=== PATIENT | female | born 1960 | race Caucasian/White ===

== ENCOUNTER 2018-01-15 14:44 | Inpatient (IN) | payer OTHER ==
[2018-01-15 15:09] VITALS: BMI 28.3
--- NOTE | 2018-01-15 17:34 | HP ---
COWS - Scale Resting Pulse: 0= [place] 80 or Below Sweatin= Chills/Flushing Restless Observation: 3= Extraneous Movement Pupil Size: 2= Moderately Dilated Bone or Joint Aches: 2= Severe Diffuse Aches Runny Nose/ Eye Tearin= Runny Nose/Eyes GI Upset > 30mins: 3= Vomiting/Diarrhea Tremor Observation: 2= Slight Tremor Visible Yawning Observation: 2= >3x During Session Anxiety or Irritability: 2=Irritable/Anxious Goose Flesh Skin: 0=Smooth Skin COWS Score: 19 CIWA Score - CIWA Score Nausea/Vomitin Muscle Tremors: 3 Anxiety: 3 Agitation: 3 Paroxysmal Sweats: 2 Orientation: 0-Oriented Tacttile Disturbances: 1-Very Mild Itch/Numbness Auditory Disturbances: 1-Very Mild Visual Disturbances: 0-None Headache: 2-Mild CIWA-Ar Total Score: 18 Admission ROS S - HPI Chief Complaint: i need help to stop using heroin,alcohol,stated has been on suboxone 8mg/2mgs po bid,but never take it ,stated take it twice for the last 2 months, last taken 3 days ago last detox in 1997 hepatitis c 6 months ago,no treatment anxiety,depression,insomnia longest sobriety 10 years Allergies/Adverse Reactions: Allergies Allergy/AdvReac Type Severity Reaction Status Date / Time benethamine penicillin AdvReac Rash Verified 01/15/18 16:34 History of Present Illness: this 57 years old female with heroin and alcohol dependence,on suboxone 8mgs/2 mgs po bid did not take suboxone,last taken 3 days ago, seeking detox as mention Exam Limitations: No Limitations - Ebola screening Have you traveled outside of the country in the last 21 days: No (N) Have you had contact with anyone from an Ebola affected area: No Have you been sick,other than usual withdrawal symptoms: No Do you have a fever: No - Review of Systems Constitutional: Chills, Loss of Appetite, Malaise, Night Sweats, Changes in sleep, Weakness EENT: reports: Tearing, Nose Congestion Respiratory: reports: Other (asthma) Cardiac: reports: No Symptoms Reported GI: reports: Diarrhea, Nausea, Vomiting, Abdominal cramping : reports: No Symptoms Reported Musculoskeletal: reports: Back Pain, Joint Pain, Muscle Pain, Joint Stiffness Integumentary: reports: Dryness Neuro: reports: Headache, Tremors Endocrine: reports: No Symptoms Reported Hematology: reports: No Symptoms Reported Psychiatric: reports: No Sypmtoms Reported, Judgement Intact, Mood/Affect Appropiate, Orientated x3, Anxious, Depressed (insomnia) Patient History - Patient Medical History Hx Asthma: Yes (ON ALBUTEROL PUMP) Hx Chronic Obstructive Pulmonary Disease (COPD): No Hx Cardiac Disorders: Yes (HEART MURMUR) Hx Hypertension: Yes (NOT ON MEDICATION) Hx Hypercholesterolemia: No Hx Pacemaker: No HX Cerebrovascular Accident: No Hx Seizures: No Hx Dementia: No Hx Diabetes: No Hx Gastrointestinal Disorders: No Hx Liver Disease: No Hx Genitourinary Disorders: No Hx Sexually Transmitted Disorders: No Hx Renal Disease (ESRD): No Hx Thyroid Disease: No Hx Human Immunodeficiency Virus (HIV): No (last 2016 negative) Hx Hepatitis C: Yes (follow up with pmd) Hx Depression: Yes Hx Suicide Attempt: No Hx Bipolar Disorder: No Hx Schizophrenia: No Other Medical History: anxiety,insomnia,no suicidal,no homicidal - Patient Surgical History Past Surgical History: No Hx Neurologic Surgery: No Hx Cataract Extraction: No Hx Cardiac Surgery: No Hx Lung Surgery: No Hx Breast Surgery: No Hx Breast Biopsy: No Hx Abdominal Surgery: No Hx Appendectomy: No Hx Cholecystectomy: No Hx Genitourinary Surgery: No Hx Section: No Hx Orthopedic Surgery: No Anesthesia Reaction: No - PPD History Previous Implant?: Yes Documented Results: Negative w/o proof Implanted On Prior [facility] Admission?: No PPD to be Administered?: Yes - Reproductive History Patient is a Female of Child Bearing Age (11 -55 yrs old): Yes Last Menstrual Period: 01/10/18 Patient : No - Smoking Cessation Smoking history: Current every day smoker Have you smoked in the past 12 months: Yes Aproximately how many cigarettes per day: 2 Hx Chewing Tobacco Use: No Initiated information on smoking cessation: Yes 'Breaking Loose' booklet given: 01/15/18 - Substance & Tx. History Hx Alcohol Use: Yes Hx Substance Use: Yes Substance Use Type: Alcohol, Heroin Hx Substance Use Treatment: Yes (1997 at [facility] ) - Substances Abused Heroin Route: Inhalation Frequency: Daily Amount used: 5-6 bags daily Age of first use: 47 Date of Last Use: 01/15/18 Alcohol Route: Oral Frequency: Daily Amount used: 1 6 pack of beer 40 ozs Age of first use: 47 Date of Last Use: 01/15/18 Family Disease History - Family Disease History Family History: Denies Admission Physical Exam [facility] - Vital Signs Vital Signs: Vital Signs - 24 hr 01/15/18 15:06 Temperature 98.2 F Pulse Rate 71 Respiratory 18 Rate Blood Pressure 162/90 - Physical General Appearance: Yes: Moderate Distress, Irritable, Sweating, Anxious HEENTM: Yes: Normal ENT Inspection, Normocephalic, CHERRI Respiratory: Yes: Lungs Clear, Normal Breath Sounds, No Respiratory Distress Neck: Yes: Within Normal Limits, Supple, Trachea in good position Breast: Yes: Breast Exam Deferred Cardiology: Yes: Within Normal Limits, Regular Rhythm, Regular Rate, S1, S2 Abdominal: Yes: Normal Bowel Sounds, Non Tender, Flat, Soft, Organomegaly Genitourinary: Yes: Within Normal Limits Back: Yes: Muscle Spasm Musculoskeletal: Yes: Back pain, Joint Stiffness, Muscle Pain Extremities: Yes: Normal Range of Motion, Non-Tender, Tremors 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 intact, Fully Oriented, Alert, Motor Strength 5/5 Integumentary: Yes: Dry Lymphatic: Yes: Within Normal Limits - Diagnostic (1) Opioid dependence with withdrawal Current Visit: Yes Status: Acute (2) Alcohol dependence with uncomplicated withdrawal Current Visit: Yes Status: Acute (3) Asthma Current Visit: Yes Status: Acute (4) Nicotine dependence Current Visit: Yes Status: Acute (5) Insomnia secondary to depression with anxiety Current Visit: Yes Status: Acute Cleared for Admission [facility] - Detox or Rehab [facility] Level of Care: Medically Managed Detox Regimen/Protocol: Methadone/Librium [facility] Breath Alcohol Content Breath Alcohol Content: 0.127 Urine Pregancy Test - Result Urine Test Results: Negative- NO Line Present Urine Drug Screen - Results Drug Screen Negative: No Urine Drug Screen Results: OPI-Opiates, MTD-Methadone, OXY-Oxycodone
[2018-01-15] MEDS ORDERED: MENTHOL/PHENOL 1 EACH UD MM PRN (17:54)
[2018-01-15] MEDS ORDERED: chlordiazePOXIDE HCL 25 MG CAPSULE PO PRN (17:54)
[2018-01-15] MEDS ORDERED: METHADONE HCL 10 MG TABLET (FOR DETOX USE ONLY) PO ONE ×2 (17:54→23:00)
[2018-01-15] MEDS ORDERED: MAGNESIUM HYDROX 2400MG/30ML ORAL SUSPENSION 30 ML CUP PO PRN (17:54)
[2018-01-15] MEDS ORDERED: chlordiazePOXIDE HCL 25 MG CAPSULE PO ONE (17:54)
[2018-01-15] MEDS ORDERED: LOPERAMIDE HCL 2 MG CAPSULE PO PRN (17:54)
[2018-01-15] MEDS ORDERED: guaiFENesin/D-METHORPHAN HB 10 ML UNIT-DOSE CUPS PO PRN (17:54)
[2018-01-15] MEDS ORDERED: MAGNESIUM CITRATE 300 ML BOTTLE PO PRN (17:54)
[2018-01-15] MEDS ORDERED: P-EPHED 60MG/TRIPROLIDI 2.5MG TABLET PO PRN (17:54)
[2018-01-15] MEDS ORDERED: ACETAMINOPHEN 325 MG TABLET (FP) PO PRN (17:54)
[2018-01-15] MEDS ORDERED: MAG HYDROX/AL HYDROX/SIMETH 30 ML UNIT-DOSE CUP PO PRN (17:54)
[2018-01-15] MEDS ORDERED: NICOTINE POLACRILEX 2 MG GUM BC PRN (17:54)
[2018-01-15] MEDS ORDERED: ALBUTEROL SO4 2.5/IPRATROPIUM 0.5 INH SOL 3 ML VIAL.NEB. NEB PRN (17:58)
[2018-01-15 22:00] LABS: URINE APPEARANCE CLEAR; URINE BILIRUBIN NEGATIVE (<2.0 mg/dL); URINE COLOR DKYELLOW; URINE GLUCOSE (UA) NEGATIVE (NEGATIVE); URINE KETONE NEGATIVE (NEGATIVE); URINE LEUK ESTERASE NEGATIVE (NEGATIVE); URINE NITRITE NEGATIVE (NEGATIVE); URINE PROTEIN NEGATIVE (NEGATIVE); URINE UROBILINOGEN 4.0 E.U/dl mg/dL (0.2-1.0)
[2018-01-15 22:07] LABS: EPI CELLS RARE /HPF (FEW); URINE BACTERIA MANY /hpf (NONE SEEN); URINE MUCUS RARE
[2018-01-15] MEDS: THIAMINE HCL 100 MG TABLET (FP) PO SCH (22:41)
[2018-01-15] MEDS: MELATONIN 5 MG TABLETS PO PRN (22:41)
[2018-01-15] MEDS: chlordiazePOXIDE HCL 25 MG CAPSULE PO SCH (22:42)
[2018-01-16] MEDS: chlordiazePOXIDE HCL 25 MG CAPSULE PO SCH ×4 (06:04→22:31)
--- NOTE | 2018-01-16 08:49 | EKG ---
Test Reason : Blood Pressure : / mmHG Vent. Rate : 077 BPM Atrial Rate : 077 BPM P-R Int : 158 ms QRS Dur : 080 ms QT Int : 406 ms P-R-T Axes : 056 034 038 degrees QTc Int : 459 ms NORMAL SINUS RHYTHM NORMAL ECG NO PREVIOUS ECGS AVAILABLE Confirmed by IMELDA RAMEY, MATT ([id number]) on 01/16/2018 8:49:15 AM Referred By: Confirmed By:MATT SEGURA MD
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
[2018-01-16] MEDS ORDERED: METHADONE HCL 10 MG TABLET (FOR DETOX USE ONLY) PO SCH (10:00)
[2018-01-16 10:32] LABS: HEMATOCRIT 36.9 % (32.4-45.2); HEMOGLOBIN 12.6 GM/dL (10.7-15.3); MCH 31.1 pg (25.7-33.7); MCHC 34.2 g/dl (32.0-36.0); MEAN CELL VOLUME 90.9 fl (80-96); MEAN PLT VOLUME 10.6 fl (7.5-11.1); RBC 4.06 M/mm3 (3.60-5.2); RDW 16.4 % (11.6-15.6); WHITE BLOOD COUNT 3.4 K/mm3 (4.0-10.0)
[2018-01-16 10:39] LABS: ALBUMIN 2.1 g/dl (3.4-5.0); ANION GAP 3 (8-16); BLOOD UREA NITROGEN 6 mg/dL (7-18); CALCIUM 7.5 mg/dL (8.5-10.1); CHLORIDE 110 mmol/L (98-107); CO2 29 mmol/L (21-32); GLUCOSE,RANDOM 105 mg/dL (74-106); POTASSIUM 3.5 mmol/L (3.5-5.1); SODIUM 142 mmol/L (136-145)
[2018-01-16 10:43] LABS: ALK PHOS 182 U/L (45-117); CREATININE 0.5 mg/dL (0.55-1.02); SGOT/AST 72 U/L (15-37); SGPT/ALT 48 U/L (12-78); TOT PROT 6.5 g/dl (6.4-8.2)
[2018-01-16] MEDS: PRENATAL VITAMINS W/ FOLIC ACID TABLET (FP) PO SCH (11:09)
[2018-01-16] MEDS: ALBUTEROL SO4 18 GM HFA INHALER IH PRN (11:12)
[2018-01-16 12:15] LABS: PLATELET COUNT 52 K/MM3 (134-434)
[2018-01-16 12:33] LABS: SICKLE CELL SCREEN POSITIVE (NEGATIVE)
[2018-01-16] MEDS: SERTRALINE HCL 50 MG TABLET (FP) PO SCH (12:40)
--- NOTE | 2018-01-16 14:47 | PN ---
[facility] CIWA - CIWA Score Nausea/Vomitin Muscle Tremors: 3 Anxiety: 3 Agitation: 2 Paroxysmal Sweats: 1-Minimal Palms Moist Orientation: 0-Oriented Tacttile Disturbances: 1-Very Mild Itch/Numbness Auditory Disturbances: 1-Very Mild Visual Disturbances: 0-None Headache: 2-Mild CIWA-Ar Total Score: 16 [facility] COWS - Scale Resting Pulse: 0= [place] 80 or Below Sweatin= Chills/Flushing Restless Observation: 3= Extraneous Movement Pupil Size: 1= Pupils >than Normal Bone or Joint Aches: 2= Severe Diffuse Aches Runny Nose/ Eye Tearin= Runny Nose/Eyes GI Upset > 30mins: 2= Nausea/Diarrhea Tremor Observation of Outstretched Hands: 2= Slight Tremor Visible Yawning Observation: 1= 1-2x During Session Anxiety or Irritability: 2=Irritable/Anxious Goose Flesh Skin: 0=Smooth Skin COWS Score: 16 [facility] Progress Note (SOAP) Subjective: ALERT,IRRITABLE,ANXIOUS,INTERRUPTED SLEEP,TREMOR,PAINI THE BODY AND BACK Objective: 01/16/18 14:43 Vital Signs Temperature 97.9 F 01/16/18 09:45 Pulse Rate 69 01/16/18 09:45 Respiratory Rate 16 01/16/18 09:45 Blood Pressure 134/75 01/16/18 09:45 O2 Sat by Pulse Oximetry (%) EKG NSR,NORMAL ECG QT 406/459 NO CHEST PAIN,NO SOB,NO DIZZINESS Laboratory Last Values WBC 3.4 K/mm3 (4.0-10.0) L 01/16/18 07:55 RBC 4.06 M/mm3 (3.60-5.2) 01/16/18 07:55 Hgb 12.6 GM/dL (10.7-15.3) 01/16/18 07:55 Hct 36.9 % (32.4-45.2) 01/16/18 07:55 MCV 90.9 fl (80-96) 01/16/18 07:55 MCH 31.1 pg (25.7-33.7) 01/16/18 07:55 MCHC 34.2 g/dl (32.0-36.0) 01/16/18 07:55 RDW 16.4 % (11.6-15.6) H 01/16/18 07:55 Plt Count 52 K/MM3 (134-434) L 01/16/18 07:55 MPV 10.6 fl (7.5-11.1) 01/16/18 07:55 Sickle Cell Screen Positive (NEGATIVE) 01/16/18 07:55 Sodium 142 mmol/L (136-145) 01/16/18 07:55 Potassium 3.5 mmol/L (3.5-5.1) 01/16/18 07:55 Chloride 110 mmol/L (98-107) H 01/16/18 07:55 Carbon Dioxide 29 mmol/L (21-32) 01/16/18 07:55 Anion Gap 3 (8-16) L 01/16/18 07:55 BUN 6 mg/dL (7-18) L 01/16/18 07:55 Creatinine 0.5 mg/dL (0.55-1.02) L 01/16/18 07:55 Creat Clearance w eGFR > 60 (>60) 01/16/18 07:55 Random Glucose 105 mg/dL (74-106) 01/16/18 07:55 Calcium 7.5 mg/dL (8.5-10.1) L 01/16/18 07:55 Total Bilirubin 2.0 mg/dL (0.2-1.0) H 01/16/18 07:55 AST 72 U/L (15-37) H 01/16/18 07:55 ALT 48 U/L (12-78) 01/16/18 07:55 Alkaline Phosphatase 182 U/L (45-117) H 01/16/18 07:55 Total Protein 6.5 g/dl (6.4-8.2) 01/16/18 07:55 Albumin 2.1 g/dl (3.4-5.0) L 01/16/18 07:55 Urine Color Dkyellow 01/15/18 20:25 Urine Appearance Clear 01/15/18 20:25 Urine pH 6.0 (5.0-8.0) 01/15/18 20:25 Ur Specific [place] 1.012 (1.001-1.035) 01/15/18 20:25 Urine Protein Negative (NEGATIVE) 01/15/18 20:25 Urine Glucose (UA) Negative (NEGATIVE) 01/15/18 20:25 Urine Ketones Negative (NEGATIVE) 01/15/18 20:25 Urine Blood 2+ (NEGATIVE) H 01/15/18 20:25 Urine Nitrite Negative (NEGATIVE) 01/15/18 20:25 Urine Bilirubin Negative (<2.0 mg/dL) 01/15/18 20:25 Urine Urobilinogen 4.0 e.u/dl mg/dL (0.2-1.0) H 01/15/18 20:25 Ur Leukocyte Esterase Negative (NEGATIVE) 01/15/18 20:25 Urine WBC (Auto) 1 /hpf (3-5) 01/15/18 20:25 Urine RBC (Auto) 10 /hpf (0-3) 01/15/18 20:25 Ur Epithelial Cells Rare /HPF (FEW) 01/15/18 20:25 Urine Bacteria Many /hpf (NONE SEEN) 01/15/18 20:25 Urine Mucus Rare 01/15/18 20:25 RPR Titer Nonreactive (NONREACTIVE) 01/16/18 07:55 HIV 1&2 Antibody Screen Negative 01/16/18 07:55 HIV P24 Antigen Negative 01/16/18 07:55 Assessment: 01/16/18 14:46 WITHDRAWAL SYMPTOM Plan: CONTINUE DETOX
[2018-01-16] MEDS: IBUPROFEN 400 MG TABLET (FP) PO PRN (20:04)
[2018-01-16] MEDS: hydrOXYzine PAMOATE 50 MG CAPSULE (FP) PO PRN (20:04)
[2018-01-16] MEDS: traZODone HCL 100 MG TABLET (FP) PO SCH (22:31)
[2018-01-16] MEDS: MELATONIN 5 MG TABLETS PO PRN (22:31)
[2018-01-16] MEDS: THIAMINE HCL 100 MG TABLET (FP) PO SCH (22:31)
--- NOTE | 2018-01-16 22:56 | PN ---
[facility] Progress Note Note: Called to see patient because of B/P: 153/80. Patient has a hx HTN but denies recent medications. Vital Signs (72 hours) 01/15/18 01/15/18 01/16/18 15:06 19:37 00:30 Temperature 98.2 F 98.1 F Pulse Rate 71 81 Respiratory 18 18 18 Rate Blood Pressure 162/90 165/80 01/16/18 01/16/18 01/16/18 03:30 06:00 09:45 Temperature 97.9 F 97.9 F Pulse Rate 66 69 Respiratory 16 18 16 Rate Blood Pressure 149/76 134/75 01/16/18 01/16/18 01/16/18 14:58 17:24 21:47 Temperature 98.1 F 98.4 F 98.2 F Pulse Rate 61 65 62 Respiratory 16 17 16 Rate Blood Pressure 142/54 152/71 153/80 Laboratory Results - last 24 hr 01/16/18 01/16/18 01/16/18 07:55 07:55 07:55 WBC 3.4 L RBC 4.06 Hgb 12.6 Hct 36.9 MCV 90.9 MCH 31.1 MCHC 34.2 RDW 16.4 H Plt Count 52 L MPV 10.6 Sickle Cell Screen Positive Sodium 142 Potassium 3.5 Chloride 110 H Carbon Dioxide 29 Anion Gap 3 L BUN 6 L Creatinine 0.5 L Creat Clearance w eGFR > 60 Random Glucose 105 Calcium 7.5 L Total Bilirubin 2.0 H AST 72 H ALT 48 Alkaline Phosphatase 182 H Total Protein 6.5 Albumin 2.1 L RPR Titer HIV 1&2 Antibody Screen Negative HIV P24 Antigen Negative HR: RR, (+) murmur noted. Denies chest pain, SOB, dyspnea, headaches. No pedal edema. 01/15/18 EGG wnl. Will start low dose Lisinopril.
[2018-01-17] MEDS: chlordiazePOXIDE HCL 25 MG CAPSULE PO SCH ×3 (05:34→17:10)
[2018-01-17] MEDS: METHADONE HCL 5 MG TABLET (FOR DETOX USE ONLY) PO SCH (10:10)
[2018-01-17] MEDS: PRENATAL VITAMINS W/ FOLIC ACID TABLET (FP) PO SCH (10:10)
[2018-01-17] MEDS: LISINOPRIL 5 MG TABLET (FP) PO SCH (10:11)
[2018-01-17] MEDS: SERTRALINE HCL 50 MG TABLET (FP) PO SCH (10:11)
[2018-01-17] MEDS: ALBUTEROL SO4 18 GM HFA INHALER IH PRN (10:13)
--- NOTE | 2018-01-17 10:20 | PN ---
S CIWA - CIWA Score Nausea/Vomitin-Mild Nausea/No Vomiting Muscle Tremors: 4-Moderate,w/Arms Extend Anxiety: 3 Agitation: 3 Paroxysmal Sweats: 1-Minimal Palms Moist Orientation: 0-Oriented Tacttile Disturbances: 1-Very Mild Itch/Numbness Auditory Disturbances: 0-None Visual Disturbances: 0-None Headache: 0-None Present CIWA-Ar Total Score: 13 [facility] COWS - Scale Resting Pulse: 0= [place] 80 or Below Sweatin= Chills/Flushing Restless Observation: 1= Difficult to Sit Still Pupil Size: 0= Normal to Room Light Bone or Joint Aches: 2= Severe Diffuse Aches Runny Nose/ Eye Tearin= Nasal Congestion GI Upset > 30mins: 2= Nausea/Diarrhea Tremor Observation of Outstretched Hands: 2= Slight Tremor Visible Yawning Observation: 2= >3x During Session Anxiety or Irritability: 2=Irritable/Anxious Goose Flesh Skin: 0=Smooth Skin COWS Score: 13 S Progress Note (SOAP) Subjective: joint pain body ache sweat tremor trouble sleep at night anxiety restlessness Objective: 01/17/18 10:16 Vital Signs Temperature 98.1 F 01/17/18 06:00 Pulse Rate 59 L 01/17/18 06:00 Respiratory Rate 18 01/17/18 06:00 Blood Pressure 140/62 01/17/18 06:00 O2 Sat by Pulse Oximetry (%) Laboratory Last Values WBC 3.4 K/mm3 (4.0-10.0) L 01/16/18 07:55 RBC 4.06 M/mm3 (3.60-5.2) 01/16/18 07:55 Hgb 12.6 GM/dL (10.7-15.3) 01/16/18 07:55 Hct 36.9 % (32.4-45.2) 01/16/18 07:55 MCV 90.9 fl (80-96) 01/16/18 07:55 MCH 31.1 pg (25.7-33.7) 01/16/18 07:55 MCHC 34.2 g/dl (32.0-36.0) 01/16/18 07:55 RDW 16.4 % (11.6-15.6) H 05/28/18 07:55 Plt Count 52 K/MM3 (134-434) L 01/16/18 07:55 MPV 10.6 fl (7.5-11.1) 01/16/18 07:55 Sickle Cell Screen Positive (NEGATIVE) 01/16/18 07:55 Sodium 142 mmol/L (136-145) 01/16/18 07:55 Potassium 3.5 mmol/L (3.5-5.1) 01/16/18 07:55 Chloride 110 mmol/L (98-107) H 01/16/18 07:55 Carbon Dioxide 29 mmol/L (21-32) 01/16/18 07:55 Anion Gap 3 (8-16) L 01/16/18 07:55 BUN 6 mg/dL (7-18) L 01/16/18 07:55 Creatinine 0.5 mg/dL (0.55-1.02) L 01/16/18 07:55 Creat Clearance w eGFR > 60 (>60) 01/16/18 07:55 Random Glucose 105 mg/dL (74-106) 01/16/18 07:55 Calcium 7.5 mg/dL (8.5-10.1) L 01/16/18 07:55 Total Bilirubin 2.0 mg/dL (0.2-1.0) H 01/16/18 07:55 AST 72 U/L (15-37) H 01/16/18 07:55 ALT 48 U/L (12-78) 01/16/18 07:55 Alkaline Phosphatase 182 U/L (45-117) H 01/16/18 07:55 Total Protein 6.5 g/dl (6.4-8.2) 01/16/18 07:55 Albumin 2.1 g/dl (3.4-5.0) L 01/16/18 07:55 Urine Color Dkyellow 01/15/18 20:25 Urine Appearance Clear 01/15/18 20:25 Urine pH 6.0 (5.0-8.0) 01/15/18 20:25 Ur Specific [place] 1.012 (1.001-1.035) 01/15/18 20:25 Urine Protein Negative (NEGATIVE) 01/15/18 20:25 Urine Glucose (UA) Negative (NEGATIVE) 01/15/18 20:25 Urine Ketones Negative (NEGATIVE) 01/15/18 20:25 Urine Blood 2+ (NEGATIVE) H 01/15/18 20:25 Urine Nitrite Negative (NEGATIVE) 01/15/18 20:25 Urine Bilirubin Negative (<2.0 mg/dL) 01/15/18 20:25 Urine Urobilinogen 4.0 e.u/dl mg/dL (0.2-1.0) H 01/15/18 20:25 Ur Leukocyte Esterase Negative (NEGATIVE) 01/15/18 20:25 Urine WBC (Auto) 1 /hpf (3-5) 01/15/18 20:25 Urine RBC (Auto) 10 /hpf (0-3) 01/15/18 20:25 Ur Epithelial Cells Rare /HPF (FEW) 01/15/18 20:25 Urine Bacteria Many /hpf (NONE SEEN) 01/15/18 20:25 Urine Mucus Rare 01/15/18 20:25 RPR Titer Nonreactive (NONREACTIVE) 01/16/18 07:55 HIV 1&2 Antibody Screen Negative 01/16/18 07:55 HIV P24 Antigen Negative 01/16/18 07:55 lab noted low calcium Assessment: 01/17/18 10:18 withdrawal sx low calcium Plan: continue detox oscal II tabs po daily health teaching on calcium rich dietary regimen
[2018-01-17] MEDS: amLODIPine BESYLATE 10 MG TABLET (FP) PO SCH (10:59)
[2018-01-17] MEDS: CALCIUM 250MG/VIT-D 125 UNITS 1 COMBO TABLET PO SCH (10:59)
[2018-01-17] MEDS: IBUPROFEN 400 MG TABLET (FP) PO PRN (20:36)
[2018-01-17] MEDS: traZODone HCL 100 MG TABLET (FP) PO SCH (22:21)
[2018-01-17] MEDS: chlordiazePOXIDE 5 MG CAPSULE PO SCH (22:21)
[2018-01-17] MEDS: THIAMINE HCL 100 MG TABLET (FP) PO SCH (22:22)
[2018-01-17] MEDS: MELATONIN 5 MG TABLETS PO PRN (22:24)
[2018-01-18] MEDS: chlordiazePOXIDE 5 MG CAPSULE PO SCH ×3 (06:14→17:37)
[2018-01-18] MEDS: METHADONE HCL 5 MG TABLET (FOR DETOX USE ONLY) PO SCH (10:17)
[2018-01-18] MEDS: SERTRALINE HCL 50 MG TABLET (FP) PO SCH (10:18)
[2018-01-18] MEDS: amLODIPine BESYLATE 10 MG TABLET (FP) PO SCH (10:18)
[2018-01-18] MEDS: LISINOPRIL 5 MG TABLET (FP) PO SCH (10:18)
[2018-01-18] MEDS: PRENATAL VITAMINS W/ FOLIC ACID TABLET (FP) PO SCH (10:18)
[2018-01-18] MEDS: CALCIUM 250MG/VIT-D 125 UNITS 1 COMBO TABLET PO SCH (10:18)
--- NOTE | 2018-01-18 10:39 | PN ---
[facility] Progress Note (SOAP) Subjective: joint pain body ache sweat tremor anxiety restlessness trouble sleep at night Objective: 01/18/18 10:39 Vital Signs Temperature 98.1 F 01/18/18 10:26 Pulse Rate 57 L 01/18/18 10:26 Respiratory Rate 16 01/18/18 10:26 Blood Pressure 117/58 01/18/18 10:26 O2 Sat by Pulse Oximetry (%) Laboratory Last Values WBC 3.4 K/mm3 (4.0-10.0) L 01/16/18 07:55 RBC 4.06 M/mm3 (3.60-5.2) 01/16/18 07:55 Hgb 12.6 GM/dL (10.7-15.3) 01/16/18 07:55 Hct 36.9 % (32.4-45.2) 01/16/18 07:55 MCV 90.9 fl (80-96) 01/16/18 07:55 MCH 31.1 pg (25.7-33.7) 01/16/18 07:55 MCHC 34.2 g/dl (32.0-36.0) 01/16/18 07:55 RDW 16.4 % (11.6-15.6) H 01/16/18 07:55 Plt Count 52 K/MM3 (134-434) L 01/16/18 07:55 MPV 10.6 fl (7.5-11.1) 01/16/18 07:55 Sickle Cell Screen Positive (NEGATIVE) 01/16/18 07:55 Sodium 142 mmol/L (136-145) 01/16/18 07:55 Potassium 3.5 mmol/L (3.5-5.1) 01/16/18 07:55 Chloride 110 mmol/L (98-107) H 01/16/18 07:55 Carbon Dioxide 29 mmol/L (21-32) 01/16/18 07:55 Anion Gap 3 (8-16) L 01/16/18 07:55 BUN 6 mg/dL (7-18) L 01/16/18 07:55 Creatinine 0.5 mg/dL (0.55-1.02) L 01/16/18 07:55 Creat Clearance w eGFR > 60 (>60) 01/16/18 07:55 Random Glucose 105 mg/dL (74-106) 01/16/18 07:55 Calcium 7.5 mg/dL (8.5-10.1) L 01/16/18 07:55 Total Bilirubin 2.0 mg/dL (0.2-1.0) H 01/16/18 07:55 AST 72 U/L (15-37) H 01/16/18 07:55 ALT 48 U/L (12-78) 01/16/18 07:55 Alkaline Phosphatase 182 U/L (45-117) H 01/16/18 07:55 Total Protein 6.5 g/dl (6.4-8.2) 01/16/18 07:55 Albumin 2.1 g/dl (3.4-5.0) L 01/16/18 07:55 Urine Color Dkyellow 01/15/18 20:25 Urine Appearance Clear 01/15/18 20:25 Urine pH 6.0 (5.0-8.0) 01/15/18 20:25 Ur Specific [place] 1.012 (1.001-1.035) 01/15/18 20:25 Urine Protein Negative (NEGATIVE) 01/15/18 20:25 Urine Glucose (UA) Negative (NEGATIVE) 01/15/18 20:25 Urine Ketones Negative (NEGATIVE) 01/15/18 20:25 Urine Blood 2+ (NEGATIVE) H 01/15/18 20:25 Urine Nitrite Negative (NEGATIVE) 01/15/18 20:25 Urine Bilirubin Negative (<2.0 mg/dL) 01/15/18 20:25 Urine Urobilinogen 4.0 e.u/dl mg/dL (0.2-1.0) H 01/15/18 20:25 Ur Leukocyte Esterase Negative (NEGATIVE) 01/15/18 20:25 Urine WBC (Auto) 1 /hpf (3-5) 01/15/18 20:25 Urine RBC (Auto) 10 /hpf (0-3) 01/15/18 20:25 Ur Epithelial Cells Rare /HPF (FEW) 01/15/18 20:25 Urine Bacteria Many /hpf (NONE SEEN) 01/15/18 20:25 Urine Mucus Rare 01/15/18 20:25 RPR Titer Nonreactive (NONREACTIVE) 01/16/18 07:55 HIV 1&2 Antibody Screen Negative 01/16/18 07:55 HIV P24 Antigen Negative 01/16/18 07:55 lab noted Assessment: 01/18/18 10:42 withdrawal sx Plan: continue detox
[2018-01-18] MEDS: THIAMINE HCL 100 MG TABLET (FP) PO SCH (22:27)
[2018-01-18] MEDS: chlordiazePOXIDE HCL 10 MG CAPSULE PO SCH (22:27)
[2018-01-18] MEDS: traZODone HCL 100 MG TABLET (FP) PO SCH (22:27)
[2018-01-18] MEDS: hydrOXYzine PAMOATE 50 MG CAPSULE (FP) PO PRN (22:29)
[2018-01-19 00:06] LABS: HGB SOLUBILITY Positive (Negative); Hgb A 55.6 % (96.4-98.8); Hgb C 0 % (0.0); Hgb F 0 % (0.0-2.0); Hgb S 40.5 % (0.0)
[2018-01-19] MEDS: chlordiazePOXIDE HCL 10 MG CAPSULE PO SCH ×3 (06:07→17:30)
--- NOTE | 2018-01-19 09:40 | PN ---
[facility] Progress Note (SOAP) Subjective: feeling better less sweat no tremor denies body ache sleep better at night Objective: 01/19/18 09:38 Vital Signs Temperature 97.7 F 01/19/18 07:53 Pulse Rate 55 L 01/19/18 07:53 Respiratory Rate 18 01/19/18 07:53 Blood Pressure 121/56 01/19/18 07:53 O2 Sat by Pulse Oximetry (%) Laboratory Last Values WBC 3.4 K/mm3 (4.0-10.0) L 01/16/18 07:55 RBC 4.06 M/mm3 (3.60-5.2) 01/16/18 07:55 Hgb 12.6 GM/dL (10.7-15.3) 01/16/18 07:55 Hct 36.9 % (32.4-45.2) 01/16/18 07:55 MCV 90.9 fl (80-96) 01/16/18 07:55 MCH 31.1 pg (25.7-33.7) 01/16/18 07:55 MCHC 34.2 g/dl (32.0-36.0) 01/16/18 07:55 RDW 16.4 % (11.6-15.6) H 01/16/18 07:55 Plt Count 52 K/MM3 (134-434) L 01/16/18 07:55 MPV 10.6 fl (7.5-11.1) 01/16/18 07:55 Sickle Cell Screen Positive (NEGATIVE) 01/16/18 07:55 Hemoglobin A 55.6 % (96.4-98.8) L 01/16/18 07:55 Hemoglobin A2 3.9 % (1.8-3.2) H 01/16/18 07:55 Hemoglobin C 0 % (0.0) 01/16/18 07:55 Hemoglobin S 40.5 % (0.0) H 01/16/18 07:55 Variant Hemoglobin 0.0 % (0.0) 01/16/18 07:55 Hemoglobin Interpret (.) 01/16/18 07:55 Maternal Rh 0 % (0.0-2.0) 01/16/18 07:55 Hemoglobin Solubility Positive (Negative) H 01/16/18 07:55 Sodium 142 mmol/L (136-145) 01/16/18 07:55 Potassium 3.5 mmol/L (3.5-5.1) 01/16/18 07:55 Chloride 110 mmol/L (98-107) H 01/16/18 07:55 Carbon Dioxide 29 mmol/L (21-32) 01/16/18 07:55 Anion Gap 3 (8-16) L 01/16/18 07:55 BUN 6 mg/dL (7-18) L 01/16/18 07:55 Creatinine 0.5 mg/dL (0.55-1.02) L 01/16/18 07:55 Creat Clearance w eGFR > 60 (>60) 01/16/18 07:55 Random Glucose 105 mg/dL (74-106) 01/16/18 07:55 Calcium 7.5 mg/dL (8.5-10.1) L 01/16/18 07:55 Total Bilirubin 2.0 mg/dL (0.2-1.0) H 01/16/18 07:55 AST 72 U/L (15-37) H 01/16/18 07:55 ALT 48 U/L (12-78) 01/16/18 07:55 Alkaline Phosphatase 182 U/L (45-117) H 01/16/18 07:55 Total Protein 6.5 g/dl (6.4-8.2) 01/16/18 07:55 Albumin 2.1 g/dl (3.4-5.0) L 01/16/18 07:55 Urine Color Dkyellow 01/15/18 20:25 Urine Appearance Clear 01/15/18 20:25 Urine pH 6.0 (5.0-8.0) 01/15/18 20:25 Ur Specific [place] 1.012 (1.001-1.035) 01/15/18 20:25 Urine Protein Negative (NEGATIVE) 01/15/18 20:25 Urine Glucose (UA) Negative (NEGATIVE) 01/15/18 20:25 Urine Ketones Negative (NEGATIVE) 01/15/18 20:25 Urine Blood 2+ (NEGATIVE) H 01/15/18 20:25 Urine Nitrite Negative (NEGATIVE) 01/15/18 20:25 Urine Bilirubin Negative (<2.0 mg/dL) 01/15/18 20:25 Urine Urobilinogen 4.0 e.u/dl mg/dL (0.2-1.0) H 01/15/18 20:25 Ur Leukocyte Esterase Negative (NEGATIVE) 01/15/18 20:25 Urine WBC (Auto) 1 /hpf (3-5) 01/15/18 20:25 Urine RBC (Auto) 10 /hpf (0-3) 01/15/18 20:25 Ur Epithelial Cells Rare /HPF (FEW) 01/15/18 20:25 Urine Bacteria Many /hpf (NONE SEEN) 01/15/18 20:25 Urine Mucus Rare 01/15/18 20:25 RPR Titer Nonreactive (NONREACTIVE) 01/16/18 07:55 HIV 1&2 Antibody Screen Negative 01/16/18 07:55 HIV P24 Antigen Negative 01/16/18 07:55 lab noted Assessment: 01/19/18 09:39 mild withdrawal sx Plan: medically supervised detox
[2018-01-19] MEDS ORDERED: METHADONE HCL 10 MG TABLET (FOR DETOX USE ONLY) PO SCH (10:00)
[2018-01-19] MEDS: SERTRALINE HCL 50 MG TABLET (FP) PO SCH (10:22)
[2018-01-19] MEDS: amLODIPine BESYLATE 10 MG TABLET (FP) PO SCH (10:22)
[2018-01-19] MEDS: PRENATAL VITAMINS W/ FOLIC ACID TABLET (FP) PO SCH (10:22)
[2018-01-19] MEDS: LISINOPRIL 5 MG TABLET (FP) PO SCH (10:22)
[2018-01-19] MEDS: CALCIUM 250MG/VIT-D 125 UNITS 1 COMBO TABLET PO SCH (10:23)
[2018-01-19] MEDS: traZODone HCL 100 MG TABLET (FP) PO SCH (22:14)
[2018-01-19] MEDS: THIAMINE HCL 100 MG TABLET (FP) PO SCH (22:14)
[2018-01-19] MEDS: MELATONIN 5 MG TABLETS PO PRN (22:14)
[2018-01-19] MEDS: hydrOXYzine PAMOATE 50 MG CAPSULE (FP) PO PRN (22:14)
[2018-01-20] MEDS ORDERED: METHADONE HCL 5 MG TABLET (FOR DETOX USE ONLY) PO SCH (06:00)
[2018-01-20 09:21] VITALS: BP 123/54; PULSE 74; TEMP 95.9
[2018-01-20] MEDS: amLODIPine BESYLATE 10 MG TABLET (FP) PO SCH (09:41)
[2018-01-20] MEDS: CALCIUM 250MG/VIT-D 125 UNITS 1 COMBO TABLET PO SCH (09:41)
[2018-01-20] MEDS: LISINOPRIL 5 MG TABLET (FP) PO SCH (09:41)
[2018-01-20] MEDS: SERTRALINE HCL 50 MG TABLET (FP) PO SCH (09:41)
[2018-01-20] MEDS: PRENATAL VITAMINS W/ FOLIC ACID TABLET (FP) PO SCH (09:41)
--- NOTE | 2018-01-20 12:17 | DS ---
[facility] Detox Discharge Summary Admission Date: 01/15/18 Discharge Date: 01/20/18 - History Present History: Opioid Dependence, Sedative Dependence Additional Comments: 57 years old admitted 01/15/18 for alcohol and opiate withdrawal sx completed alcohol and opiate detox regimen tolerated well denies alcohol and opiate withdrawal sx alert oriented x 3 no acute distress aftercare [place] "near my daughter's" home patient determines to remain sober through the help of [place] and support from daughter - Physical Exam Results Vital Signs: Vital Signs Temperature 95.9 F L 01/20/18 09:20 Pulse Rate 74 01/20/18 09:20 Respiratory Rate 20 01/20/18 09:20 Blood Pressure 123/54 01/20/18 09:20 O2 Sat by Pulse Oximetry (%) Pertinent Admission Physical Exam Findings: alcohol and opiate withdrawal sx Vital Signs Temperature 95.9 F L 01/20/18 09:20 Pulse Rate 74 01/20/18 09:20 Respiratory Rate 20 01/20/18 09:20 Blood Pressure 123/54 01/20/18 09:20 O2 Sat by Pulse Oximetry (%) Laboratory Last Values WBC 3.4 K/mm3 (4.0-10.0) L 01/16/18 07:55 RBC 4.06 M/mm3 (3.60-5.2) 01/16/18 07:55 Hgb 12.6 GM/dL (10.7-15.3) 01/16/18 07:55 Hct 36.9 % (32.4-45.2) 01/16/18 07:55 MCV 90.9 fl (80-96) 01/16/18 07:55 MCH 31.1 pg (25.7-33.7) 01/16/18 07:55 MCHC 34.2 g/dl (32.0-36.0) 01/16/18 07:55 RDW 16.4 % (11.6-15.6) H 01/16/18 07:55 Plt Count 52 K/MM3 (134-434) L 01/16/18 07:55 MPV 10.6 fl (7.5-11.1) 01/16/18 07:55 Sickle Cell Screen Positive (NEGATIVE) 01/16/18 07:55 Hemoglobin A 55.6 % (96.4-98.8) L 01/16/18 07:55 Hemoglobin A2 3.9 % (1.8-3.2) H 01/16/18 07:55 Hemoglobin C 0 % (0.0) 01/16/18 07:55 Hemoglobin S 40.5 % (0.0) H 01/16/18 07:55 Variant Hemoglobin 0.0 % (0.0) 01/16/18 07:55 Hemoglobin Interpret (.) 01/16/18 07:55 Maternal Rh 0 % (0.0-2.0) 01/16/18 07:55 Hemoglobin Solubility Positive (Negative) H 01/16/18 07:55 Sodium 142 mmol/L (136-145) 01/16/18 07:55 Potassium 3.5 mmol/L (3.5-5.1) 01/16/18 07:55 Chloride 110 mmol/L (98-107) H 01/16/18 07:55 Carbon Dioxide 29 mmol/L (21-32) 01/16/18 07:55 Anion Gap 3 (8-16) L 01/16/18 07:55 BUN 6 mg/dL (7-18) L 01/16/18 07:55 Creatinine 0.5 mg/dL (0.55-1.02) L 01/16/18 07:55 Creat Clearance w eGFR > 60 (>60) 01/16/18 07:55 Random Glucose 105 mg/dL (74-106) 01/16/18 07:55 Calcium 7.5 mg/dL (8.5-10.1) L 01/16/18 07:55 Total Bilirubin 2.0 mg/dL (0.2-1.0) H 01/16/18 07:55 AST 72 U/L (15-37) H 01/16/18 07:55 ALT 48 U/L (12-78) 01/16/18 07:55 Alkaline Phosphatase 182 U/L (45-117) H 01/16/18 07:55 Total Protein 6.5 g/dl (6.4-8.2) 01/16/18 07:55 Albumin 2.1 g/dl (3.4-5.0) L 01/16/18 07:55 Urine Color Dkyellow 01/15/18 20:25 Urine Appearance Clear 01/15/18 20:25 Urine pH 6.0 (5.0-8.0) 01/15/18 20:25 Ur Specific [place] 1.012 (1.001-1.035) 01/15/18 20:25 Urine Protein Negative (NEGATIVE) 01/15/18 20:25 Urine Glucose (UA) Negative (NEGATIVE) 01/15/18 20:25 Urine Ketones Negative (NEGATIVE) 01/15/18 20:25 Urine Blood 2+ (NEGATIVE) H 01/15/18 20:25 Urine Nitrite Negative (NEGATIVE) 01/15/18 20:25 Urine Bilirubin Negative (<2.0 mg/dL) 01/15/18 20:25 Urine Urobilinogen 4.0 e.u/dl mg/dL (0.2-1.0) H 01/15/18 20:25 Ur Leukocyte Esterase Negative (NEGATIVE) 01/15/18 20:25 Urine WBC (Auto) 1 /hpf (3-5) 01/15/18 20:25 Urine RBC (Auto) 10 /hpf (0-3) 01/15/18 20:25 Ur Epithelial Cells Rare /HPF (FEW) 01/15/18 20:25 Urine Bacteria Many /hpf (NONE SEEN) 01/15/18 20:25 Urine Mucus Rare 01/15/18 20:25 RPR Titer Nonreactive (NONREACTIVE) 01/16/18 07:55 HIV 1&2 Antibody Screen Negative 01/16/18 07:55 HIV P24 Antigen Negative 01/16/18 07:55 lab noted - Treatment Hospital Course: Detox Protocol Followed, Detoxed Safely, Responded well, Discharged Condition Good, Rehab Referral Accepted Patient has Accepted a Re[facility] Referral to: [facility] - Medication Discharge Medications: Ambulatory Orders Sertraline HCl [Zoloft -] 100 mg PO DAILY #60 tablet 01/16/18 traZODone HCL [Desyrel -] 100 mg PO HS #30 tablet 01/16/18 - Diagnosis (1) Alcohol dependence with uncomplicated withdrawal Status: Acute (2) Asthma Status: Chronic Qualifiers: Asthma severity: mild Asthma persistence: intermittent Asthma complication type: with status asthmaticus Qualified Code(s): J45.22 - Mild intermittent asthma with status asthmaticus (3) Hypertension Status: Chronic Qualifiers: Hypertension type: essential hypertension Qualified Code(s): I10 - Essential (primary) hypertension (4) Nicotine dependence Status: Acute Qualifiers: Nicotine product type: cigarettes Substance use status: in withdrawal Qualified Code(s): F17.213 - Nicotine dependence, cigarettes, with withdrawal (5) Opioid dependence with withdrawal Status: Acute - AMA Did Patient Leave Against Medical Advice: No
== END 2018-01-20 09:51 | disposition home or self-care (01) | DRG 773 ==
LOC: YASAS 14:44 → Y6N 17:59
PROVIDERS: ADMIT Surgery; ATTEND Surgery
PROC: HZ2ZZZZ Detoxification Services for Substance Abuse Treatment (ICD-10-PCS; principal; 2018-01-15)
DX: F11.23 Opioid dependence with withdrawal (principal); F10.230 Alcohol dependence with withdrawal, uncomplicated; F17.210 Nicotine dependence, cigarettes, uncomplicated; F51.05 Insomnia due to other mental disorder; F43.10 Post-traumatic stress disorder, unspecified; F33.9 Major depressive disorder, recurrent, unspecified; D57.3 Sickle-cell trait; B18.2 Chronic viral hepatitis C; I10 Essential (primary) hypertension; R01.1 Cardiac murmur, unspecified
CPT/HCPCS: 36415; 80053; 81003; 81015; 83021; 85027; 85660; 86593; 87389; 93005; 93010

== ENCOUNTER 2020-11-06 12:19 | Inpatient (IN) | payer OTHER ==
[2020-11-06 13:11] VITALS: BMI 45.5
[2020-11-06] MEDS ORDERED: ALBUTEROL SO4 HFA INHALER IH PRN (13:54)
[2020-11-06] MEDS ORDERED: MENTHOL/PHENOL 1 EACH UD MM PRN (13:55)
[2020-11-06] MEDS ORDERED: MAG HYDROX/AL HYDROX/SIMETH 30 ML UNIT-DOSE CUP PO PRN (13:55)
[2020-11-06] MEDS ORDERED: NICOTINE POLACRILEX 2 MG GUM BUC PRN (13:55)
[2020-11-06] MEDS ORDERED: BISMUTH SUBSALICYLATE 262 MG/15 ML BTL PO PRN (13:55)
[2020-11-06] MEDS ORDERED: ACETAMINOPHEN 325 MG TABLET (FP) PO PRN ×2 (13:55)
[2020-11-06] MEDS ORDERED: MAGNESIUM CITRATE 300 ML BOTTLE PO PRN (13:55)
[2020-11-06] MEDS ORDERED: IBUPROFEN 400 MG TABLET (FP) PO PRN (13:55)
[2020-11-06] MEDS ORDERED: MAGNESIUM HYDROX 2400MG/30ML ORAL SUSPENSION 30 ML CUP PO PRN (13:55)
[2020-11-06] MEDS ORDERED: LORazepam 1 MG TABLET PO PRN (13:55)
[2020-11-06] MEDS ORDERED: ONDANSETRON *ODT* 4 MG TABLET SL PRN (13:55)
[2020-11-06] MEDS: PRENATAL VITAMINS W/ FOLIC ACID TABLET (FP) PO SCH (15:01)
[2020-11-06] MEDS: NICOTINE 7 MG/24 HOURS TOPICAL PATCH TD SCH (15:01)
[2020-11-06] MEDS: hydrOXYzine PAMOATE 25 MG CAPSULE (FP) PO SCH ×3 (15:01→21:58)
[2020-11-06 16:25] LABS: HEMATOCRIT 30.5 % (32.4-45.2); MCH 29.3 pg (25.7-33.7); MCHC 32.8 g/dl (32.0-36.0); MEAN CELL VOLUME 89.5 fl (80-96); MEAN PLT VOLUME 10.2 fl (7.5-11.1); PLATELET COUNT 64 K/MM3 (134-434); POTASSIUM 4.2 mmol/L (3.5-5.1); RBC 3.41 M/mm3 (3.60-5.2); RDW 17.5 % (11.6-15.6); WHITE BLOOD COUNT 4.7 K/mm3 (4.0-10.0)
[2020-11-06 16:28] LABS: BLOOD UREA NITROGEN 4.4 mg/dL (7-18)
[2020-11-06 16:29] LABS: ALBUMIN 2.1 g/dl (3.4-5.0)
[2020-11-06 16:31] LABS: CALCIUM 8.4 mg/dL (8.5-10.1)
[2020-11-06 16:32] LABS: CREATININE 0.6 mg/dL (0.55-1.3)
[2020-11-06 16:33] LABS: BILIRUBIN,TOTAL 1.2 mg/dL (0.2-1); TOT PROT 7.3 g/dl (6.4-8.2)
[2020-11-06] MEDS: LORazepam 2 MG TABLET PO SCH ×2 (17:49→22:00)
[2020-11-06] MEDS: THIAMINE HCL 100 MG TABLET (FP) PO SCH (21:58)
[2020-11-06] MEDS: MELATONIN 5 MG TABLETS PO SCH (21:58)
[2020-11-06] MEDS: METHOCARBAMOL 500 MG TABLET PO PRN (23:23)
[2020-11-07] MEDS ORDERED: METHADONE HCL 40 MG DISPERSABLE TABLET ONE (04:54)
[2020-11-07] MEDS ORDERED: METHADONE HCL 10 MG TABLET ONE (04:54)
[2020-11-07] MEDS ORDERED: METHADONE HCL 10 MG TABLET PO SCH (06:00)
[2020-11-07] MEDS: LORazepam 2 MG TABLET PO SCH ×4 (06:21→22:09)
[2020-11-07] MEDS: METHADONE 40 MG, METHADONE 20 MG PO SCH (06:21)
[2020-11-07] MEDS: hydrOXYzine PAMOATE 25 MG CAPSULE (FP) PO SCH ×2 (06:26→10:28)
[2020-11-07] MEDS: NICOTINE 7 MG/24 HOURS TOPICAL PATCH TD SCH (10:28)
[2020-11-07] MEDS: PRENATAL VITAMINS W/ FOLIC ACID TABLET (FP) PO SCH (10:28)
[2020-11-07] MEDS ORDERED: PENICILLIN G BENZATHINE 2,400,000 UNIT/4 ML PFS IM ONE (13:28)
[2020-11-07] MEDS ORDERED: hydrOXYzine PAMOATE 25 MG CAPSULE (FP) PO PRN (13:28)
[2020-11-07] MEDS: DOXYCYCLINE HYCLATE 100 MG TABLET PO SCH (18:06)
[2020-11-07] MEDS: THIAMINE HCL 100 MG TABLET (FP) PO SCH (22:09)
[2020-11-07] MEDS: MELATONIN 5 MG TABLETS PO SCH (22:09)
[2020-11-08] MEDS: METHOCARBAMOL 500 MG TABLET PO PRN (00:06)
[2020-11-08] MEDS ORDERED: METHADONE HCL 10 MG TABLET ONE (04:55)
[2020-11-08] MEDS ORDERED: METHADONE HCL 40 MG DISPERSABLE TABLET ONE (04:56)
[2020-11-08] MEDS: LORazepam 1 MG TABLET PO SCH ×4 (05:20→22:05)
[2020-11-08] MEDS: METHADONE 40 MG, METHADONE 20 MG PO SCH (05:21)
[2020-11-08] MEDS: DOXYCYCLINE HYCLATE 100 MG TABLET PO SCH ×2 (10:57→17:10)
[2020-11-08] MEDS: PRENATAL VITAMINS W/ FOLIC ACID TABLET (FP) PO SCH (10:57)
[2020-11-08] MEDS: NICOTINE 7 MG/24 HOURS TOPICAL PATCH TD SCH (10:58)
[2020-11-08] MEDS: THIAMINE HCL 100 MG TABLET (FP) PO SCH (22:05)
[2020-11-08] MEDS: MELATONIN 5 MG TABLETS PO SCH (22:05)
[2020-11-09] MEDS ORDERED: LORazepam 0.5 MG TABLET PO PRN
[2020-11-09] MEDS ORDERED: METHADONE HCL 10 MG TABLET ONE (04:33)
[2020-11-09] MEDS ORDERED: METHADONE HCL 40 MG DISPERSABLE TABLET ONE (04:33)
[2020-11-09] MEDS: LORazepam 0.5 MG TABLET PO SCH ×4 (05:15→22:04)
[2020-11-09] MEDS: METHADONE 40 MG, METHADONE 20 MG PO SCH (05:15)
[2020-11-09] MEDS: DOXYCYCLINE HYCLATE 100 MG TABLET PO SCH ×2 (10:43→18:34)
[2020-11-09] MEDS: PRENATAL VITAMINS W/ FOLIC ACID TABLET (FP) PO SCH (10:43)
[2020-11-09] MEDS: NICOTINE 7 MG/24 HOURS TOPICAL PATCH TD SCH (10:46)
[2020-11-09] MEDS: MELATONIN 5 MG TABLETS PO SCH (22:04)
[2020-11-09] MEDS: THIAMINE HCL 100 MG TABLET (FP) PO SCH (22:05)
[2020-11-10] MEDS: METHOCARBAMOL 500 MG TABLET PO PRN (01:39)
[2020-11-10] MEDS ORDERED: METHADONE HCL 10 MG TABLET ONE (04:37)
[2020-11-10] MEDS ORDERED: METHADONE HCL 40 MG DISPERSABLE TABLET ONE (04:38)
[2020-11-10] MEDS ORDERED: LORazepam 0.5 MG TABLET PO ONE (05:00)
[2020-11-10] MEDS: METHADONE 40 MG, METHADONE 20 MG PO SCH (06:19)
[2020-11-10] MEDS: PRENATAL VITAMINS W/ FOLIC ACID TABLET (FP) PO SCH (09:09)
[2020-11-10] MEDS: NICOTINE 7 MG/24 HOURS TOPICAL PATCH TD SCH (09:09)
[2020-11-10] MEDS: DOXYCYCLINE HYCLATE 100 MG TABLET PO SCH (09:09)
[2020-11-10 09:55] VITALS: BP 154/87; PULSE 86; TEMP 98
== END 2020-11-10 11:28 | disposition home or self-care (01) | DRG 773 ==
LOC: YASAS 12:19 → Y3N 13:51
PROVIDERS: ADMIT Allergy & Immunology; ATTEND Allergy & Immunology
PROC: HZ2ZZZZ Detoxification Services for Substance Abuse Treatment (ICD-10-PCS; principal; 2020-11-06)
DX: F10.230 Alcohol dependence with withdrawal, uncomplicated (principal); F11.20 Opioid dependence, uncomplicated; F17.210 Nicotine dependence, cigarettes, uncomplicated; F31.9 Bipolar disorder, unspecified; F43.10 Post-traumatic stress disorder, unspecified; I10 Essential (primary) hypertension; K74.60 Unspecified cirrhosis of liver; R60.0 Localized edema; R63.5 Abnormal weight gain; Z68.42 Body mass index [BMI] 45.0-49.9, adult; Z86.19 Personal history of other infectious and parasitic diseases; Z88.0 Allergy status to penicillin; Z88.8 Allergy status to other drugs, medicaments and biological substances
CPT/HCPCS: 36415; 80053; 81025; 85027; 86593; 86780; 93005; 93010; C9803; U0003